=== PATIENT | male | born 1995 | race Caucasian/White ===

== ENCOUNTER 2018-07-25 23:20 | Emergency (ER) | payer SELFPAY ==
[2018-07-26] MEDS ORDERED: Take Home: Codeine/Promethazine 10-6.25 MG/5 ML Syrup 5 ML, 2 Cup Pack PO ONE (00:24)
[2018-07-26] MEDS ORDERED: Take Home: Doxycycline 100 MG Tab, 4 Tab Pack PO ONE (00:24)
--- NOTE | 2018-07-26 01:06 | EDM.PDOC ---
ED HPI GENERAL MEDICAL PROBLEM - General Chief Complaint: ENT Problem Stated Complaint: Sore throat, cough Time Seen by Provider: 07/25/18 23:20 Source of Information: Reports: Patient History Limitations: Reports: No Limitations - History of Present Illness INITIAL COMMENTS - FREE TEXT/NARRATIVE: Pt. presents to ER with complaints of sore throat, chest congestion, and sinus congestion. Denies any fever or chills. No nausea, vomiting, diarrhea. No ill contacts. No chest or abdominal pain. Onset Date: 07/26/18 Severity: Moderate - Related Data Allergies Allergy/AdvReac Type Severity Reaction Status Date / Time No Known Allergies Allergy Verified 07/25/18 23:42 ED ROS GENERAL - Review of Systems Review Of Systems: See Below Constitutional: Reports: Weakness HEENT: Reports: No Symptoms, Rhinitis, Sinus Problem, Throat Pain Respiratory: Reports: Cough Cardiovascular: Reports: No Symptoms Endocrine: Reports: No Symptoms GI/Abdominal: Reports: No Symptoms : Reports: No Symptoms Musculoskeletal: Reports: No Symptoms Skin: Reports: No Symptoms Neurological: Reports: No Symptoms Psychiatric: Reports: No Symptoms Hematologic/Lymphatic: Reports: No Symptoms Immunologic: Reports: No Symptoms ED EXAM, GENERAL - Physical Exam Exam: See Below Exam Limited By: No Limitations General Appearance: Alert, WD/WN, No Apparent Distress Eye Exam: Bilateral Eye: EOMI, Normal Fundi, Normal Inspection, PERRL Ears: Normal External Exam, Normal Canal, Hearing Grossly Normal, Normal TMs Ear Exam: Bilateral Ear: Auricle Normal, Canal Normal, TM normal Nose: Normal Inspection, Normal Mucosa, No Blood Throat/Mouth: Normal Inspection, Normal Lips, Normal Teeth, Normal Gums, Normal Oropharynx, Normal Voice, No Airway Compromise Head: Atraumatic, Normocephalic Neck: Normal Inspection, Supple, Non-Tender, Full Range of Motion Respiratory/Chest: No Respiratory Distress, Lungs Clear, Normal Breath Sounds, No Accessory Muscle Use, Chest Non-Tender Cardiovascular: Normal Peripheral Pulses, Regular Rate, Rhythm, No Edema, No Gallop, No JVD, No Murmur, No Rub Peripheral Pulses: 4+: Radial (L), Radial (R) GI/Abdominal: Normal Bowel Sounds, Soft, Non-Tender, No Organomegaly, No Distention, No Abnormal Bruit, No Mass (Male) Exam: Deferred Rectal (Males) Exam: Deferred Back Exam: Normal Inspection, Full Range of Motion, NT Extremities: Normal Inspection, Normal Range of Motion, Non-Tender, Normal Capillary Refill, No Pedal Edema Neurological: Alert, Oriented, CN II-XII Intact, Normal Cognition, Normal Gait, Normal Reflexes, No Motor/Sensory Deficits Psychiatric: Normal Affect, Normal Mood Skin Exam: Warm, Dry, Intact, Normal Color, No Rash Lymphatic: No Adenopathy Course - Orders/Labs/Meds Orders: Active Orders 24 hr Category Date Time Status Chest 2V [CR] Stat Exams 07/25/18 23:42 Taken CULTURE STREP A CONFIRMATION [RM] Stat Lab 07/25/18 23:55 Received Labs: Laboratory Tests 07/25/18 Range/Units 23:55 POC Group A Strep Rpd Negative (NEGATIVE) Meds: Medications Discontinued Medications Generic Name Dose Route Start Last Admin Trade Name Jr PRN Reason Stop Dose Admin Doxycycline Monohydrate 1 packet 07/26/18 00:24 07/26/18 00:33 Take Home: Doxycycline 100 Mg, 4 Tab Pack PO 07/26/18 00:25 1 packet ONETIME ONE Administration Promethazine HCl/Codeine 1 packet 07/26/18 00:24 07/26/18 00:33 Take Home: Codeine/Prometh 10-6.25 Mg, 2 Pack PO 07/26/18 00:25 1 packet ONETIME ONE Administration - Radiology Interpretation Free Text/Narrative:: Chest x-ray shows increased hilar markings consistent with bronchitis Departure - Departure Time of Disposition: 00:40 Disposition: Home, Self-Care 01 Condition: Good Clinical Impression: Bronchitis - Discharge Information Instructions: Acute Bronchitis, Adult, [id number], Doxycycline tablets or capsules, Codeine; Promethazine oral syrup Forms: ED Department Discharge Additional Instructions: Doxycycline 100mg twice daily for 10 days. Pnenergan with codeine 1 tsp. every 4-6 hours as needed for cough May also take ibuprofen as needed for discomfort. Drink plenty of fluids. Follow-up in clinic in 10-14 days if not gradually improving. - My Orders Last 24 Hours: My Active Orders 07/25/18 23:42 Chest 2V [CR] Stat 07/25/18 23:55 CULTURE STREP A CONFIRMATION [RM] Stat - Assessment/Plan Last 24 Hours: My Active Orders 07/25/18 23:42 Chest 2V [CR] Stat 07/25/18 23:55 CULTURE STREP A CONFIRMATION [RM] Stat Plan: Doxycycline 100mg twice daily for 10 days. Pnenergan with codeine 1 tsp. every 4-6 hours as needed for cough May also take ibuprofen as needed for discomfort. Drink plenty of fluids. Follow-up in clinic in 10-14 days if not gradually improving.
== END 2018-07-26 00:45 | disposition home or self-care (01) ==
LOC: VM.ED 23:20
DX: J40 Bronchitis, not specified as acute or chronic (principal)
CPT/HCPCS: 71046; 87081; 87880-QW; 99283; 99283-GF; A9270-GY